=== PATIENT | female | born 1940 | race Caucasian/White ===

== ENCOUNTER 2020-11-25 09:05 | Day surgery (SDC) | payer OTHER ==
[2020-11-24 13:11] LABS: COVID AG,FIA SOURCE NASOPHARYNGEAL
[~2020-11-25] VITALS: Ht 157.5 cm; Wt 48.1 kg
[~2020-11-25 09:05] MED LIST: SODIUM CHLORIDE 0.9% 1,000 ML IV ONE; SODIUM CHLORIDE 0.9% 1,000 ML ONE
[2020-11-25] MEDS ORDERED: PROPOFOL 1% 20 ML VIAL IVP ONE (09:06)
[2020-11-25] MEDS ORDERED: SODIUM CHLORIDE 0.9% 1,000 ML ONE (09:09)
[2020-11-25] MEDS ORDERED: ASPI-1450 PO (10:31)
[2020-11-25] MEDS ORDERED: LISI-894 PO (10:31)
[2020-11-25] MEDS ORDERED: FAMO20 PO (10:31)
== END 2020-11-25 13:50 | disposition home or self-care (01) ==
LOC: SURGERY 09:05
PROVIDERS: ATTEND Student in an Organized Health Care Education/Training Program
DX: K29.50 Unspecified chronic gastritis without bleeding (principal); K44.9 Diaphragmatic hernia without obstruction or gangrene; K31.89 Other diseases of stomach and duodenum; I10 Essential (primary) hypertension; Z98.890 Other specified postprocedural states; Z93.3 Colostomy status; Z79.899 Other long term (current) drug therapy; Z90.49 Acquired absence of other specified parts of digestive tract; Z79.82 Long term (current) use of aspirin
CPT/HCPCS: 43239; 87426; 88305; 88313; C9803; J2704; J7030